=== PATIENT | female | born 1945 | race Caucasian/White ===

== ENCOUNTER 2022-08-24 11:48 | Observation (INO) | payer BC ==
[~2022-08-24] VITALS: Ht 157.5 cm; Wt 90.9 kg
[2022-08-24 12:27] LABS: EOSINOPHILS # (AUTO) 0.1 X10'3 (0-0.9); HEMATOCRIT 37.7 % (35.0-45.0); HEMOGLOBIN 12.3 g/dl (12.0-16.0); WHITE BLOOD COUNT 7.3 X10'3 (4.5-11.0)
[2022-08-24 12:28] LABS: BASOPHILS % (AUTO) 0.4 % (0-1); EOSINOPHILS % (AUTO) 1.2 % (0-6); LYMPHOCYTES # (AUTO) 1.4 X10'3 (1.1-4.8); LYMPHOCYTES % (AUTO) 18.6 % (21-51); MEAN CORPUSCULAR HEMOGLOBIN 31.1 PG (27.0-31.0); MEAN CORPUSCULAR HGB CONC 32.7 g/dL (33.0-36.5); MEAN CORPUSCULAR VOLUME 95.3 FL (78-98); MEAN PLATELET VOLUME 8.5 FL (7.4-10.4); MONOCYTES # (AUTO) 0.7 X10'3 (0-0.9); MONOCYTES % (AUTO) 9.4 % (2-12); NEUTROPHILS # (AUTO) 5.1 X10'3 (1.8-7.7); NEUTROPHILS % (AUTO) 70.4 % (42-75); PLATELET COUNT 353 X10'3 (140-440); RED BLOOD COUNT 3.95 X10'6 (4.20-5.60); RED CELL DISTRIBUTION WIDTH 15.3 % (11.5-14.5)
[2022-08-24 12:46] LABS: ALKALINE PHOSPHATASE 121 IU/L (46-116)
--- NOTE | 2022-08-24 12:55 | NUR ---
xray done at bedside
[2022-08-24 13:11] LABS: ASPARTATE AMINO TRANSFERASE 21 U/L (10-37); BILIRUBIN,TOTAL 0.4 MG/DL (0.1-1.0); GLUCOSE 146 MG/DL (70-104)
[2022-08-24 13:21] LABS: SODIUM 139 MMOL/L (135-145)
[2022-08-24 13:38] LABS: CHLORIDE 105 MMOL/L (99-107); POTASSIUM 4.2 MMOL/L (3.5-5.1)
[2022-08-24 13:39] LABS: ANION GAP 12 (8-16); BLOOD UREA NITROGEN 21 MG/DL (7-18); CREATININE 0.94 MG/DL (0.40-0.90); TOTAL CARBON DIOXIDE 22.5 MMOL/L (24-32)
[2022-08-24 13:40] LABS: BUN/CREATININE RATIO 22.3 (6.6-38.0); CALCIUM 9.2 MG/DL (8.5-10.1); eGFR 58 ML/MIN
[2022-08-24 13:41] LABS: ALANINE AMINOTRANSFERASE 19 U/L (12-78); ALBUMIN 3.5 G/DL (3.4-5.0); TOTAL PROTEIN 6.9 G/DL (6.4-8.2)
[2022-08-24] MEDS: normal saline 500ml IV soln 500 ML IV SCH ×3 (13:59→17:46)
--- NOTE | 2022-08-24 14:01 | NUR ---
ALEIDA DAMICO ([facility]) [phone].
[2022-08-24 14:12] LABS: D-DIMER 7.51 MG/L FEU (0-0.50)
[2022-08-24] MEDS ORDERED: iohexol 350MG/ML 100ml bottle IV ONE (18:36)
[2022-08-24] MEDS ORDERED: normal saline 1000ML IV soln IVB ONE (19:50)
[2022-08-24] MEDS ORDERED: normal saline 1000ml 1,000 ML IV SCH (20:15)
[2022-08-24] MEDS ORDERED: magnesium Cl slow-release 64mg tablet PO PRN (20:15)
[2022-08-24] MEDS ORDERED: ondansetron/PF 4mg/2ml inj IV PRN (20:15)
[2022-08-24] MEDS ORDERED: magnesium 4gm in 100ml NS 100 ML IV PRN (20:15)
[2022-08-24] MEDS ORDERED: potassium Cl 20 mEq SR tablet PO PRN ×2 (20:15)
[2022-08-24] MEDS ORDERED: potassium Cl 40MEQ/1/2NS 520ml 520 ML IV PRN (20:15)
[2022-08-24] MEDS ORDERED: acetaminophen 325mg tablet PO PRN ×2 (20:15)
[2022-08-24] MEDS ORDERED: OMEP20CA16 PO (23:05)
[2022-08-24] MEDS ORDERED: SERT-432 PO (23:05)
[2022-08-24] MEDS ORDERED: HYDR-4069 PO (23:05)
[2022-08-24] MEDS ORDERED: BENA20TA83 PO (23:05)
[2022-08-24] MEDS ORDERED: ASPI-1071 PO (23:05)
[2022-08-24] MEDS ORDERED: DIPH25TA25 PO (23:05)
[2022-08-24] MEDS ORDERED: TRIA15CR62 TP (23:05)
[2022-08-25] VITALS (9 sets, daily range): BP systolic 119–178; BP diastolic 52–87
[2022-08-25] MEDS ORDERED: hyDRALAzine 10mg tablet PO SCH (02:00)
[2022-08-25] MEDS: temazepam 15mg capsule PO PRN ×2 (02:09→21:12)
[2022-08-25] MEDS: lisinopril 20mg tablet PO SCH ×2 (02:10→09:30)
--- NOTE | 2022-08-25 06:02 | NUR ---
This patient arrived on the floor around midnight. Bp was elevated, and she requested sleep aid. A call was made to Dr. Butts. The patient received a sleep aide and one bp medication. Her bp has decreased from 178/76 to 150/76. She denies pain or discomfort
[2022-08-25 06:04] LABS: BASOPHILS % (AUTO) 0.6 % (0-1); EOSINOPHILS # (AUTO) 0.1 X10'3 (0-0.9); EOSINOPHILS % (AUTO) 2.1 % (0-6); HEMATOCRIT 33.8 % (35.0-45.0); LYMPHOCYTES # (AUTO) 1.5 X10'3 (1.1-4.8); LYMPHOCYTES % (AUTO) 23.7 % (21-51); MEAN CORPUSCULAR HGB CONC 32.5 g/dL (33.0-36.5); MEAN CORPUSCULAR VOLUME 95.3 FL (78-98); MEAN PLATELET VOLUME 9.4 FL (7.4-10.4); MONOCYTES # (AUTO) 0.9 X10'3 (0-0.9); MONOCYTES % (AUTO) 13.4 % (2-12); NEUTROPHILS # (AUTO) 3.9 X10'3 (1.8-7.7); NEUTROPHILS % (AUTO) 60.2 % (42-75); PLATELET COUNT 342 X10'3 (140-440); RED BLOOD COUNT 3.55 X10'6 (4.20-5.60); RED CELL DISTRIBUTION WIDTH 15.1 % (11.5-14.5); WHITE BLOOD COUNT 6.5 X10'3 (4.5-11.0)
[2022-08-25 06:28] LABS: ALANINE AMINOTRANSFERASE 14 U/L (12-78); ALKALINE PHOSPHATASE 104 IU/L (46-116); ANION GAP 8 (8-16); ASPARTATE AMINO TRANSFERASE 14 U/L (10-37); BILIRUBIN,TOTAL 0.3 MG/DL (0.1-1.0); BLOOD UREA NITROGEN 16 MG/DL (7-18); BUN/CREATININE RATIO 19.8 (6.6-38.0); CALCIUM 9.1 MG/DL (8.5-10.1); CHLORIDE 110 MMOL/L (99-107); CREATININE 0.81 MG/DL (0.40-0.90); GLUCOSE 101 MG/DL (70-104); POTASSIUM 3.8 MMOL/L (3.5-5.1); SODIUM 141 MMOL/L (135-145); TOTAL CARBON DIOXIDE 23.3 MMOL/L (24-32); TOTAL PROTEIN 5.9 G/DL (6.4-8.2); eGFR 68 ML/MIN
[2022-08-25] MEDS: hydrALAZINE 25 MG tablet PO SCH ×3 (08:00→19:45)
[2022-08-25] MEDS ORDERED: hydrALAZINE 25 MG tablet PO SCH (08:00)
[2022-08-25] MEDS ORDERED: non-formulary drug (Benazepril HCl 1 TAB) PO SCH (08:00)
[2022-08-25] MEDS: aspirin 81mg, enteric-coated 1 TAB TABLET.DR PO SCH (09:18)
[2022-08-25] MEDS: pantoprazole 40mg Tablet.DR PO SCH (09:19)
[2022-08-25] MEDS: heparin, porcine 5000 units/ml vial SQ SCH ×2 (09:20→21:18)
[2022-08-25] MEDS: sertraline 25mg tablet PO SCH (09:20)
--- NOTE | 2022-08-25 11:08 | NUR ---
Paged Dr. Aguilar regarding critical finding on VL carotid ultrasound. PAGER ID: [phone] MESSAGE: [id number], Arben Loyd. Pt has a critical finding from the VL ultrasound. Significant arterial kink in proximal left common carotid artery. Written results in paper chart. Lian [facility] 4510.
--- NOTE | 2022-08-25 11:30 | NUR ---
PAGER ID: [phone] MESSAGE: [id number], Arben Loyd. I gave you the wrong patient name this is the one with the critical finding for the VL carotid. Lian [facility] 0241
[2022-08-25] MEDS ORDERED: iohexol 350MG/ML 100ml bottle IV ONE (15:54)
--- NOTE | 2022-08-25 16:24 | NUR ---
PAGER ID: [phone] MESSAGE: [id number], Arben Loyd. Pt is saying she needs something to help with her claustrophobia for her MRA. They are wanting to get the MRI done [place]. Lian [facility] 0208.
--- NOTE | 2022-08-25 18:33 | NUR ---
Problems reprioritized. Patient report given, questions answered & plan of care reviewed with Manjula Rn, patient stable at transfer of care.
[2022-08-26] VITALS (7 sets, daily range): BP systolic 114–166; BP diastolic 65–82
[2022-08-26 06:24] LABS: BASOPHILS % (AUTO) 0.5 % (0-1); EOSINOPHILS # (AUTO) 0.2 X10'3 (0-0.9); EOSINOPHILS % (AUTO) 2.9 % (0-6); HEMATOCRIT 36.1 % (35.0-45.0); HEMOGLOBIN 11.7 g/dl (12.0-16.0); LYMPHOCYTES # (AUTO) 1.5 X10'3 (1.1-4.8); LYMPHOCYTES % (AUTO) 24.5 % (21-51); MEAN CORPUSCULAR HGB CONC 32.5 g/dL (33.0-36.5); MEAN CORPUSCULAR VOLUME 95.4 FL (78-98); MEAN PLATELET VOLUME 8.7 FL (7.4-10.4); MONOCYTES # (AUTO) 0.8 X10'3 (0-0.9); MONOCYTES % (AUTO) 12.8 % (2-12); NEUTROPHILS # (AUTO) 3.6 X10'3 (1.8-7.7); NEUTROPHILS % (AUTO) 59.3 % (42-75); PLATELET COUNT 333 X10'3 (140-440); RED BLOOD COUNT 3.78 X10'6 (4.20-5.60); RED CELL DISTRIBUTION WIDTH 15.3 % (11.5-14.5)
[2022-08-26 06:42] LABS: ALANINE AMINOTRANSFERASE 18 U/L (12-78); ALBUMIN 3.1 G/DL (3.4-5.0); ALKALINE PHOSPHATASE 108 IU/L (46-116); ANION GAP 8 (8-16); ASPARTATE AMINO TRANSFERASE 19 U/L (10-37); BILIRUBIN,TOTAL 0.3 MG/DL (0.1-1.0); BLOOD UREA NITROGEN 15 MG/DL (7-18); BUN/CREATININE RATIO 16.3 (6.6-38.0); CHLORIDE 107 MMOL/L (99-107); CREATININE 0.92 MG/DL (0.40-0.90); GLUCOSE 109 MG/DL (70-104); SODIUM 139 MMOL/L (135-145); TOTAL CARBON DIOXIDE 23.7 MMOL/L (24-32); TOTAL PROTEIN 6.3 G/DL (6.4-8.2); eGFR 59 ML/MIN
--- NOTE | 2022-08-26 07:38 | NUR ---
I did not receive report from NOC RN.
[2022-08-26] MEDS: pantoprazole 40mg Tablet.DR PO SCH (08:04)
[2022-08-26] MEDS: hydrALAZINE 25 MG tablet PO SCH ×2 (08:05→14:00)
[2022-08-26] MEDS: lisinopril 20mg tablet PO SCH (08:05)
[2022-08-26] MEDS: sertraline 25mg tablet PO SCH (08:05)
[2022-08-26] MEDS: aspirin 81mg, enteric-coated 1 TAB TABLET.DR PO SCH (08:05)
[2022-08-26] MEDS: heparin, porcine 5000 units/ml vial SQ SCH (08:05)
--- NOTE | 2022-08-26 09:58 | NUR ---
as clinical instructor i reviewed student nurse physical assessment
[2022-08-26] MEDS ORDERED: BENA20TA83 PO ×2 (12:16)
[2022-08-26] MEDS ORDERED: LISI20TA28 PO (12:19)
--- NOTE | 2022-08-26 14:40 | NUR ---
Student documentation: I have reviewed and agree with all interventions, assessments performed and documented by Zuleyka student nurse.
--- NOTE | 2022-08-26 14:40 | NUR ---
Student Medication Administration: For this medication-pass time frame, all medication were reviewed, dispensed, administered and documented per hospital policy by jeff Gardiner nurse.
--- NOTE | 2022-08-26 14:45 | NUR ---
Patient stable for discharge per MD orders. New prescriptions e-scripted to pharmacy. Belongings collected and sent with patient. PIV discontinued and cannula intact. monitoring analyst discontinued. Patient will call PCP for appointment. Patient wheeled down to lobby and left via private vehicle
== END 2022-08-26 14:45 | disposition home or self-care (01) ==
LOC: ER 11:50 → ED HOLD 20:17 → PCU 3S 22:55
PROVIDERS: ADMIT Internal Medicine; ATTEND Internal Medicine
DX: R55 Syncope and collapse (principal); I10 Essential (primary) hypertension; R91.1 Solitary pulmonary nodule; M19.90 Unspecified osteoarthritis, unspecified site; Z90.49 Acquired absence of other specified parts of digestive tract; Z98.84 Bariatric surgery status; Z79.899 Other long term (current) drug therapy
CPT/HCPCS: 36415; 70450; 70496; 70498; 71045; 71275; 80053; 83880; 84484; 85025; 85379; 87081; 93005; 93306; 93880; 96360; 96361; 96372; 97116; 97161; 97530; 99291; G0378; J1644; J3490; J7030; J7040; Q9967

== ENCOUNTER 2023-02-27 15:41 | Emergency (ER) | payer BC ==
[~2023-02-27] VITALS: Ht 157.5 cm; Wt 90.9 kg
[~2023-02-27 15:41] MED LIST: ASPI-1071 PO; HYDR-4069 PO; LISI20TA28 PO; OMEP20CA16 PO; SERT-432 PO; TRIA15CR62 TP
--- NOTE | 2023-02-27 16:47 | NUR ---
RN ORD EKG PER PROTOCOL D/T PT HAS NEW WEAKNESS AND SYNCOPE WITH HER FALL. EMS EKG SHOWS NSR WITH [facility]
[2023-02-27 16:48] LABS: BASOPHILS % (AUTO) 0.2 % (0-1); EOSINOPHILS % (AUTO) 0.6 % (0-6); HEMATOCRIT 36.7 % (35.0-45.0); HEMOGLOBIN 11.8 g/dl (12.0-16.0); LYMPHOCYTES # (AUTO) 0.9 X10'3 (1.1-4.8); LYMPHOCYTES % (AUTO) 11.4 % (21-51); MEAN CORPUSCULAR HEMOGLOBIN 30.5 PG (27.0-31.0); MEAN CORPUSCULAR VOLUME 95.3 FL (78-98); MEAN PLATELET VOLUME 8.7 FL (7.4-10.4); MONOCYTES # (AUTO) 0.8 X10'3 (0-0.9); MONOCYTES % (AUTO) 10.5 % (2-12); NEUTROPHILS # (AUTO) 5.8 X10'3 (1.8-7.7); NEUTROPHILS % (AUTO) 77.3 % (42-75); PLATELET COUNT 300 X10'3 (140-440); RED BLOOD COUNT 3.85 X10'6 (4.20-5.60); RED CELL DISTRIBUTION WIDTH 16.1 % (11.5-14.5); WHITE BLOOD COUNT 7.5 X10'3 (4.5-11.0)
[2023-02-27 17:00] LABS: ALANINE AMINOTRANSFERASE 13 U/L (12-78); ALBUMIN 3.5 G/DL (3.4-5.0); ALKALINE PHOSPHATASE 122 IU/L (46-116); ANION GAP 11 (8-16); ASPARTATE AMINO TRANSFERASE 18 U/L (10-37); BILIRUBIN,TOTAL 0.3 MG/DL (0.1-1.0); BLOOD UREA NITROGEN 35 MG/DL (7-18); BUN/CREATININE RATIO 29.2 (10.0-20.0); CALCIUM 9.4 MG/DL (8.5-10.1); CHLORIDE 104 MMOL/L (99-107); GLUCOSE 120 MG/DL (70-104); POTASSIUM 3.9 MMOL/L (3.5-5.1); SODIUM 138 MMOL/L (135-145); TOTAL PROTEIN 6.9 G/DL (6.4-8.2); eCRCL 30 ML/MIN; eGFR 43 ML/MIN
[2023-02-27 17:57] VITALS: BP 157/90; PULSE 85; RESP 13; O2SAT 99
[2023-02-27 18:28] LABS: BILIRUBIN,URINE NEGATIVE (Neg); CLARITY,URINE CLOUDY (Clear); COLOR,URINE YELLOW (Yellow); GLUCOSE, URINE NEGATIVE (Neg); KETONES,URINE NEGATIVE (Neg); LEUKOCYTE ESTERASE ,URINE NEGATIVE (Neg); NITRITES, URINE POSITIVE (Neg); OCCULT BLOOD,URINE NEGATIVE (Neg); PROTEIN,URINE NEGATIVE (Neg); UROBILINOGEN,URINE 0.2 E.U/dL (0.2-1.0)
[2023-02-27 19:03] LABS: UA COLLECTION TYPE CLN CATCH MIDSTREAM
[2023-02-27 19:06] LABS: SQUAMOUS EPITHELIAL CELL,UR MODERATE /LPF (FEW)
[2023-02-27 19:07] LABS: BACTERIA,URINE 4+ /HPF (Neg); RBC,URINE NONE SEEN /HPF (0-2)
[2023-02-27] MEDS ORDERED: CEPH-585 PO (19:13)
[2023-02-27 19:34] VITALS: TEMP 97.6
== END 2023-02-27 19:36 | disposition home or self-care (01) ==
LOC: ER 15:42
DX: N39.0 Urinary tract infection, site not specified (principal); R32 Unspecified urinary incontinence; F31.9 Bipolar disorder, unspecified; I10 Essential (primary) hypertension; Z79.899 Other long term (current) drug therapy
CPT/HCPCS: 36415; 80053; 81001; 85025; 87077; 87088; 87186; 93005; 99284

== ENCOUNTER 2024-08-16 12:02 | Emergency (ER) | payer BC, MEDICAID ==
[~2024-08-16] VITALS: Ht 157.5 cm; Wt 86.3 kg
[~2024-08-16 12:02] MED LIST changes: -HYDR-4069 PO; +HYDR25TA90 PO
[2024-08-16 13:12] LABS: BASOPHILS % (AUTO) 0.5 % (0-1); EOSINOPHILS # (AUTO) 0.2 X10'3 (0-0.9); EOSINOPHILS % (AUTO) 2.5 % (0-6); HEMATOCRIT 38.8 % (35.0-45.0); HEMOGLOBIN 12.8 g/dl (12.0-16.0); LYMPHOCYTES # (AUTO) 1.3 X10'3 (1.1-4.8); LYMPHOCYTES % (AUTO) 17.7 % (21-51); MEAN CORPUSCULAR HEMOGLOBIN 32.8 PG (27.0-31.0); MEAN CORPUSCULAR HGB CONC 33.1 g/dL (33.0-36.5); MEAN CORPUSCULAR VOLUME 99.1 FL (78-98); MEAN PLATELET VOLUME 9.5 FL (7.4-10.4); MONOCYTES # (AUTO) 0.9 X10'3 (0-0.9); MONOCYTES % (AUTO) 11.9 % (2-12); NEUTROPHILS % (AUTO) 67.4 % (42-75); PLATELET COUNT 329 X10'3 (140-440); RED BLOOD COUNT 3.92 X10'6 (4.20-5.60); RED CELL DISTRIBUTION WIDTH 14.2 % (11.5-14.5); WHITE BLOOD COUNT 7.4 X10'3 (4.5-11.0)
[2024-08-16 13:27] LABS: ALBUMIN 3.5 G/DL (3.4-5.0); ANION GAP 5 (8-16); BLOOD UREA NITROGEN 16 MG/DL (7-18); BUN/CREATININE RATIO 19.3 (10.0-20.0); CALCIUM 9.3 MG/DL (8.5-10.1); CHLORIDE 106 MMOL/L (99-107); CREATININE 0.83 MG/DL (0.40-0.90); ETHANOL < 10 MG/DL (<10); GLUCOSE 99 MG/DL (70-104); POTASSIUM 4.2 MMOL/L (3.5-5.1); SALICYLATE 1.4 MG/DL (4.0-20.0); SODIUM 141 MMOL/L (135-145); TOTAL CARBON DIOXIDE 30.4 MMOL/L (24-32); eGFR 66 ML/MIN
[2024-08-16 13:43] LABS: ACETAMINOPHEN < 2.0 UG/ML (10-30)
[2024-08-16 14:02] LABS: BILIRUBIN,URINE NEGATIVE (Neg); CLARITY,URINE CLEAR (Clear); COLOR,URINE YELLOW (Yellow); GLUCOSE, URINE NEGATIVE (Neg); KETONES,URINE NEGATIVE (Neg); LEUKOCYTE ESTERASE ,URINE SMALL (Neg); NITRITES, URINE POSITIVE (Neg); OCCULT BLOOD,URINE MODERATE (Neg); PROTEIN,URINE NEGATIVE (Neg); UROBILINOGEN,URINE 0.2 E.U/dL (0.2-1.0)
[2024-08-16 14:09] LABS: UA COLLECTION TYPE CLN CATCH MIDSTREAM
[2024-08-16 14:27] LABS: BACTERIA,URINE 2+ /HPF (Neg); MUCUS STRANDS FEW /LPF (Neg); SQUAMOUS EPITHELIAL CELL,UR FEW /LPF (FEW); WBC,URINE 20-30 /HPF (0-4)
[2024-08-16 14:34] LABS: URINE AMPHETAMINE SCREEN NEGATIVE (Neg); URINE BARBITUATE SCREEN NEGATIVE (Neg); URINE BENZODIAZEPINES SCREEN NEGATIVE (Neg); URINE CANNABINOID SCREEN NEGATIVE (Neg); URINE COCAINE SCREEN NEGATIVE (Neg); URINE METHADONE SCREEN NEGATIVE (Neg); URINE OPIATE SCREEN NEGATIVE (Neg); URINE PHENCYCLIDINE SCREEN NEGATIVE (Neg)
[2024-08-17] MEDS: hydrALAZINE 25 MG tablet PO SCH (13:00)
[2024-08-18] MEDS: aspirin 81mg, enteric-coated 1 TAB TABLET.DR PO SCH (08:04)
[2024-08-18] MEDS: lisinopril 20mg tablet PO SCH (08:05)
[2024-08-18] MEDS: pantoprazole 40mg Tablet.DR PO SCH (08:05)
[2024-08-18] MEDS: sertraline 25mg tablet PO SCH (08:26)
[2024-08-18 15:26] VITALS: BP 132/91; PULSE 82; RESP 6; TEMP 97.5; O2SAT 99
== END 2024-08-18 15:40 | disposition home or self-care (01) ==
LOC: ER 12:03
DX: R45.850 Homicidal ideations (principal); Z79.82 Long term (current) use of aspirin; Z79.899 Other long term (current) drug therapy; Z20.822 Contact with and (suspected) exposure to COVID-19
CPT/HCPCS: 36415; 80048; 80305; 80320; 80329; 81001; 85025; 87811; 99285